=== PATIENT | male | born 1995 | race Caucasian/White ===

== ENCOUNTER 2023-09-17 21:56 | Emergency (ER) | payer SELFPAY ==
[2023-09-17 21:57] VITALS: BP 117/71
[2023-09-17 22:13] LABS: Urine Albumin Negative (Neg - Trace); Urine Bilirubin Negative (Negative); Urine Character Clear (Clear); Urine Color Yellow; Urine Glucose Negative (Negative); Urine Ketone Trace (Negative); Urine Leukocyte Negative (Negative); Urine Nitrite Negative (Negative); Urine Occult Blood Negative (Negative); Urine Specific Gravity 1.025 (<1.030); Urine Urobilinogen Negative (Neg - 1+)
[2023-09-17 22:15] LABS: Hemoglobin 14.3 g/dL (13.0-18.0); Mean Corp Hgb Conc. 35.8 g/dL (33.0-37.0); Mean Corpuscular Volume 83.9 fL (80.0-94.0); Mean Platelet Volume 8.7 fL (7.4-10.4); Platelet Count 238 10^3/uL (130-400); Red Blood Cell Count 4.77 10^6/uL (4.70-6.10); Red Cell Dist. Width 12.1 % (11.5-14.5); White Blood Cell Count 5.6 10^3/uL (4.8-10.8)
[2023-09-17 22:25] LABS: Blood Urea Nitrogen 12 mg/dl (9-20); Calcium 9.8 mg/dl (8.4-10.2); Carbon Dioxide 28 mmol/L (22-30); Chloride 104 mmol/L (98-107); Glucose 81 mg/dl (70-99); Potassium 4.1 mmol/L (3.5-5.1); Sodium 139 mmol/L (135-145); eGFR > 60.00
[2023-09-18 01:06] VITALS: BMI 25.2
[2023-09-18 01:07] VITALS: BP 130/78
--- NOTE | 2023-09-18 01:22 | ED.GENMED ---
History of Present Illness
<CONY Patino - Last Filed: 09/18/23 05:56>
General
Chief Complaint: Flank Pain
Source: patient
Exam Limitations: none
Time Seen by Provider: 09/18/23 01:02
History of Present Illness
History of Present Illness:
27 year old male presenting for evaluation of R flank pain with radiation to his R groin. Pt states that he injured his back at work one week ago, but has been experiencing R flank pain with radiation to his groin since Thursday. He notes that this
pain has worsened today, which prompted his ED visit. He describes the pain as sharp, and rates it as a 7/10. He adds that he has had difficulty sleeping and is unable to get comfortable over the last 24 hours due to the pain. He also admits to
associated loss of appetite. He denies N/V/D, fever, dysuria, urinary hesitancy, frequency, and hematuria. He has tried OTC pain medication with little relief.
Past History
<CONY Patino - Last Filed: 09/18/23 05:56>
Past History
ED Past Medical History: Psychiatric (Anxiety)
ED Past Surgical History: None
Social History
Tobacco: Vaping
Alcohol: None
Personal: Single
Living: with family
Review of Systems
<CONY Patino - Last Filed: 09/18/23 05:56>
Review of Systems
Allergies reviewed?: Yes
Constitutional: Reports no symptoms
EENT: Reports no symptoms
Respiratory: Reports no symptoms
Cardiac: Reports no symptoms
ABD/GI: Reports constipated, anorexia and pain
: Reports flank pain
Skin: Reports no symptoms
Neurological: Reports no symptoms
Endocrine: Reports no symptoms
Hematologic/Lymphatic: Reports no symptoms
Psychiatric: Reports no symptoms
Phy Exam
<CONY Patino - Last Filed: 09/18/23 05:56>
General Physical Exam
General Presentation: well appearing
General age: appears stated age
General Skin: warm
General Habitus: normal
General Mental: alert
General Hydration: appears well hydrated
Cardiovascular Exam
Cardiovascular Exam: regular rate/rhythm and no edema
Pulmonary Exam
Pulmonary Exam: lungs clear and no respiratory distress
Gastrointestinal Exam
Gastrointestinal Exam: normal bowel sounds, cva tenderness, no abdominal hernia and no inguinal hernia
Palpation: right upper quadrant: Mild tenderness and right lower quadrant: Mild tenderness
Musculoskeletal Exam
Musculoskeletal Exam: back pain and back tenderness
Course
<CONY Patino - Last Filed: 09/18/23 05:56>
Orders/Labs/Results
Orders:
Orders
09/17/23 22:08
BMP [Basic Metabolic Panel] Urgent
Complete Blood Count/No Diff Urgent
Urinalysis Reflex To Culture Urgent
Date Specimen was Collected: 09/17/23
Time Specimen was Collected: 22:01
09/18/23 01:21
CT Abd/pel Without Iv Or Oral Urgent
Comment:
Reason For Exam: flank pain (R)
Abnormal Lab Results
09/17/23
22:08
Urine Ketones Trace A
(Negative)
09/17/23 22:08
09/17/23 22:08
Vital Signs
Initial and Last Documented VS:
Initial Vital Signs
Temp Pulse Resp BP Pulse Ox
98.9 F 79 18 117/71 98
09/17/23 21:57 09/17/23 21:57 09/17/23 21:57 09/17/23 21:57 09/17/23 21:57
Last Documented Vital Signs
Temp Pulse Resp BP Pulse Ox
98.9 F 82 18 130/78 100
09/17/23 21:57 09/18/23 01:07 09/18/23 01:07 09/18/23 01:07 09/18/23 01:07
<Ruben Ohara DO - Last Filed: 09/18/23 02:29>
Orders/Labs/Results
Orders:
Orders
09/17/23 22:08
BMP [Basic Metabolic Panel] Urgent
Complete Blood Count/No Diff Urgent
Urinalysis Reflex To Culture Urgent
Date Specimen was Collected: 09/17/23
Time Specimen was Collected: 22:01
09/18/23 01:21
CT Abd/pel Without Iv Or Oral Urgent
Comment:
Reason For Exam: flank pain (R)
Abnormal Lab Results
09/17/23
22:08
Urine Ketones Trace A
(Negative)
09/17/23 22:08
09/17/23 22:08
Vital Signs
Initial and Last Documented VS:
Initial Vital Signs
Temp Pulse Resp BP Pulse Ox
98.9 F 79 18 117/71 98
09/17/23 21:57 09/17/23 21:57 09/17/23 21:57 09/17/23 21:57 09/17/23 21:57
Last Documented Vital Signs
Temp Pulse Resp BP Pulse Ox
98.9 F 82 18 130/78 100
09/17/23 21:57 09/18/23 01:07 09/18/23 01:07 09/18/23 01:07 09/18/23 01:07
<CONY Patino - Last Filed: 09/18/23 05:56>
MDM/Problems Addressed
Differential Diagnosis Includes:
Low back strain, herniated lumbar disc, nephrolithiasis, appendicitis, cystitis, pyelonephritis, pancreatitis.
MDM/Problems Addressed:
BMP
Complete Blood Count
Urinalysis Reflex To Culture
CT Abd/pel Without Iv Or Oral Urgent
<CONY Patino - Last Filed: 09/18/23 05:56>
*Critical Care Note
Total Time (30-74mins, 75-104mins- exclusive of procedures): Not Applicable
ED Attending Note
<CONY Patino - Last Filed: 09/18/23 05:56>
-
Portions of this chart may have been created with voice recognition software.� Occasional wrong word or��sound alike� substitutions may have occurred due to the inherent limitations of voice recognition software.
<Ruben Ohara DO - Last Filed: 09/18/23 02:29>
ED Attending Note
Patient seen and examined by attending physician: Yes
I performed the substantive portion of visit, reviewed & personally made and approve the management plan that is documented in note by myself or JAY.: Yes
ED Attending Note:
This a pleasant 27-year-old male presents with right flank pain. He states that several days ago he was lifting his girlfriend up and he felt sharp pain on his right flank. He reports that it radiates into his right groin. He states that the pain
it has involved that is not similar to the original pain. Denies any difficulty urinating. He states that the pain is reproducible with torso twisting. Reports no chest pain or shortness of breath. Patient came into the emergency department
because he felt he had difficulty sleeping due to the pain. Patient was seen in conjunction with the PA student. I have reviewed and agree with the history and treatment plan presented. On my independent physical exam, patient is awake, alert,
and oriented x3. Heart is regular rate rhythm. Lungs clear to auscultation bilaterally without wheezes rales or rhonchi present. Abdomen is soft without reproducible pain in the right lower quadrant. Good bowel sounds x 4 quadrants. Minimal
right-sided CVA tenderness.
Given urinalysis that does not show any hematuria, minimal CVA tenderness, and reproduction with torso twisting, I feel that this is musculoskeletal in nature.
Discharge Plan
Departure
Patient Disposition: Home (Routine Discharge)
Date of Disposition: 09/18/23
Time of Disposition: 02:28
Patient with high blood pressure during this ER visit?: Yes
Condition: Good
Discharge Problem:
Musculoskeletal pain
Instructions: BLOOD PRESSURE, Musculoskeletal Pain
Prescriptions:
New
cyclobenzaprine 10 mg tablet
10 mg PO TID PRN (Reason: spasm) Qty: 10 0RF
diclofenac sodium 75 mg tablet,delayed release (DR/EC)
75 mg PO BID Qty: 10 0RF
No Action
cyclobenzaprine 10 mg tablet
10 mg PO HS Qty: 5 0RF
prednisone 20 mg tablet
40 mg PO DAILY Qty: 10 0RF
Referrals:
[facility] [Provider Group]
Eddy Ivan MD [Family Provider] -
Stand Alone Forms: Return to Work
Activity Restrictions/Additional Instructions:
It was a pleasure meeting you and taking part in your care. We hope for your continued healing and wellness.
Please read discharge instructions in their entirety. However, they are for general education and may not describe your exact diagnosis at discharge. Information on your ER visit and medical conditions were discussed with you along with appropriate
follow up information...
If indicated, please take your medications as instructed and indicated on discharge paperwork.
Please schedule a follow up appointment as directed. Call to schedule an appointment
Please return to the emergency department with ANY change in, persisting, or worsening of symptoms. If any of your symptoms do not improve, or persist, or become more severe within 6-12 hours, please return to the emergency department for further
care.
Please return to the emergency department if you develop a headache, neck pain/stiffness, fever greater than 100.4F, chest pain, shortness of breath, persistent nausea, vomiting, slurred speech, difficulty walking, numbness/tingling, weakness, signs
of infection or any other symptoms that are worrisome to you.
If you have any questions or concerns please do not hesitate to call the Hospital at or E-mail me directly at [email or web address]
Interventions
Interventions:
*Risk Screen - Suicide Last Done: 09/18/23 01:07
*General Assessment Last Done: 09/18/23 01:06
*Neglect/Abuse Screening Last Done: 09/18/23 01:07
ED- Fall Risk Assessment Last Done: 09/18/23 01:17
*ED COVID-19 Vaccine History Last Done: 09/18/23 02:51
*Nursing Disposition Last Done: 09/18/23 02:51
TO-Tzcxbe-Kxhlwzjahj Assessment Last Done: 09/18/23 01:17
ED-Male Genitourinary Assessment Last Done: 09/18/23 01:17
Discharge Date and Time
Discharge Date/Time: 09/18/23 02:53
Print Language: ZAMBIAN
== END 2023-09-18 02:53 | disposition home or self-care (01) ==
LOC: EMR 21:56
PROVIDERS: Emergency Medicine; EMERGENCY PHYSICIAN Student in an Organized Health Care Education/Training Program; FAMILY PHYSICIAN Family Medicine
DX: M79.18 Myalgia, other site (principal); R63.0 Anorexia; F41.9 Anxiety disorder, unspecified; F17.290 Nicotine dependence, other tobacco product, uncomplicated
CPT/HCPCS: 99284; 74176; 80048; 81003; 85027

== ENCOUNTER 2024-12-26 07:07 | Emergency (ER) | payer SELFPAY ==
[2024-12-26 07:08] VITALS: BP 109/77
[2024-12-26 07:33] VITALS: BP 109/74
[2024-12-26 07:40] VITALS: BMI 23.2
[2024-12-26 07:56] LABS: Hematocrit 39.0 % (39.0-52.0); Hemoglobin 13.8 g/dL (13.0-18.0); Mean Corp Hgb Conc. 35.4 g/dL (33.0-37.0); Mean Corpuscular Volume 84.8 fL (80.0-94.0); Nucleated Red Blood Cells % 0 % (-); Platelet Count 223 10^3/uL (130-400); Red Cell Dist. Width 12.1 % (11.5-14.5)
[2024-12-26 08:15] LABS: ALT (SGPT) 26 U/L (0-50); AST (SGOT) 21 U/L (17-59); Albumin 4.5 g/dl (3.5-5.0); Alkaline Phosphatase 66 U/L (38-126); Blood Urea Nitrogen 13 mg/dl (9-20); Calcium 9.3 mg/dl (8.4-10.2); Carbon Dioxide 26 mmol/L (22-30); Chloride 108 mmol/L (98-107); Estimated Creatinine Clearance > 125 ml/min; Glucose 96 mg/dl (70-99); Potassium 4.1 mmol/L (3.5-5.1); Sodium 141 mmol/L (135-145); Total Protein 7.2 g/dl (6.3-8.2); eGFR > 60.00
--- NOTE | 2024-12-26 08:19 | ED.GENMED ---
History of Present Illness
General
Chief Complaint: Fainting/Passed Out
Source: patient
Exam Limitations: none
Time Seen by Provider: 12/26/24 08:07
Nursing documentation reviewed up to this point in time: agreed with
History of Present Illness
History of Present Illness:
Patient is a healthy 29-year-old male who presents to the emergency department for evaluation after syncopal event this morning. He states that he woke up this morning, was feeling in his normal state of health prior to getting in the shower around
6:30 AM. During his shower he began feeling very lightheaded, nauseous and experiencing tunnel vision. Fortunately�he was able to walk out of the shower and alert his girlfriend that he felt as if he was going to faint. He then slumped against
the toilet and briefly 'blacked out'. He did not hit his head or sustain any injuries.
Patient's girlfriend did witness the brief syncopal event and states he was out for only a few seconds. He denies experiencing any chest pain or shortness of breath preceding his syncope. He denies any headache, neck pain, numbness/tingling, or
unilateral weakness in extremities.
He does not believe that the temperature of the shower was any hotter than his normal. He denies experiencing any similar syncopal events in the past. He was going [place] this weekend and was feeling well however did feel that he was coming down
with a mild upper respiratory cold this past .
Past History
Past History
ED Past Medical History: Psychiatric (Anxiety)
ED Past Surgical History: None
Social History
Tobacco: Vaping
Alcohol: None
Personal: Single
Living: with family
Review of Systems
Review of Systems
Allergies reviewed?: Yes
All Other Systems: ROS reviewed and negative except as documented in HPI and ROS
Phy Exam
Physical Exam
Physical Exam:
Vitals: Patient's vital signs are stable. Afebrile
General: Patient is very well appearing, no acute distress. Nontoxic-appearing
Skin: Warm and dry, no rashes or lesions
Head: Normocephalic, atraumatic
Eyes: Sclera nonicteric. EOMs intact. Pupils equal round and reactive to light bilaterally. No nystagmus.
Throat: Protecting airway
Neck: Normal ROM, no cervical spine tenderness, no meningismus
Cardiac: Regular rate and rhythm, no murmurs.
Pulm: Normal respiratory effort, no wheezes, rales, rhonchi heard on exam
Abdomen: No abdominal tenderness.
Extremities: No evidence of cyanosis or edema. Strength 5/5 in bilateral upper and lower extremities.
Neuro: AAOx3. CN II-XII grossly intact. No focal deficits
Psychiatric: Normal affect.
Course
Orders/Labs/Results
Orders:
Orders
12/26/24 07:11
Electrocardiogram (*1) Urgent
Reason for Study: Syncope
12/26/24 07:12
EKG- Treatment ONCE
12/26/24 07:39
Complete Blood Count/With Diff Urgent
Comprehensive Metabolic Panel Urgent
12/26/24 08:18
Orthostatic VS- Treatment ONCE
0.9% Sodium Chloride 500 ml [Nss] 500 ml IV BOLUS
12/26/24 08:27
COVID-19 Antigen Urgent
Source: Nasal Swab
Influenza A+B Rapid Molecular Urgent
KOBI Source: Nasal Swab
Specimen Description:
12/26/24 09:12
0.9% Sodium Chloride 500 ml [Nss] 500 ml IV BOLUS
Abnormal Lab Results
12/26/24
07:39
RBC 4.60 L 10^6/uL
(4.70-6.10)
Monocytes % 9.5 H %
(1.7-9.3)
Chloride 108 H mmol/L
(98-107)
12/26/24 07:39
12/26/24 07:39
Vital Signs
Initial and Last Documented VS:
Initial Vital Signs
Temp Pulse Resp BP Pulse Ox
98.4 F 64 18 109/77 98
12/26/24 07:08 12/26/24 07:08 12/26/24 07:08 12/26/24 07:08 12/26/24 07:08
Last Documented Vital Signs
Temp Pulse Resp BP Pulse Ox
98.4 F 58 16 109/74 99
12/26/24 07:08 12/26/24 07:45 12/26/24 07:45 12/26/24 07:33 12/26/24 08:20
MDM/Problems Addressed
Differential Diagnosis Includes:
Not limited to: Vasovagal syncope, orthostatic hypotension, acute dehydration, viral illness, less likely cardiac arrhythmia, etc.
MDM/Problems Addressed:
29 year old previously healthy male presents the ED after syncopal event that occurred while taking a shower. He reports feeling lightheaded and nauseous, then lost consciousness very briefly and regained awareness in seconds. No seizure-like
activity, tongue biting, incontinence, chest pain or shortness of breath. He has stable vital signs on arrival and throughout ED stay. Afebrile, normotensive, no orthostatic hypotension. Physical exam as above. Normal neurologic, cardiovascular,
and pulmonary exams. No evidence of head trauma.
EKG reveals sinus bradycardia. No evidence of ischemia, arrhythmia, or QT prolongation. Basic labs within normal limits. No indication for imaging at this time as there is no evidence of trauma or any neurologic deficits.
Overall impression is likely vasovagal syncope triggered by prolonged standing and heat in shower. He has an overall very low risk profile with no history of cardiac disease or any concerning features of syncope including exertional component or
family history of sudden . He has normal ECG, physical exam, and labs. He was given a liter of IV fluids with subjective improvement in symptoms. Patient is ambulating around the room without any lightheadedness or dizziness. He has a
steady gait.
Ultimately�feel stable for discharge home with return precautions and PCP follow-up next week. Patient comfortable with plan.
Chronic conditions affecting care:
N/A
Acute Exacerbation and/or Progression of Chronic Illness:
N/A
*Pulse Oximetry
SaO2: 99
Oxygen Mode of Delivery: Room air
Patient hypoxic: no
*EKG
Interpreted by ED Provider?: Yes
EKG Intrepretation Date: 12/26/24
Interpretation: normal
Comparison EKG: no changes
Heart Rate: 59
Rate: bradycardiac
Rhythm: sinus
[place]: normal axis
Interval: normal QT interval
Ischemia: no ischemia
*Financial Reporting Consultant Interpretation
Rate: bradycardiac
Interpretation: normal
Heart Rate: 58
Rhythm: sinus
*Critical Care Note
Total Time (30-74mins, 75-104mins- exclusive of procedures): Not Applicable
ED Attending Note
-
Portions of this chart may have been created with voice recognition software.� Occasional wrong word or��sound alike� substitutions may have occurred due to the inherent limitations of voice recognition software.
Discharge Plan
Departure
Patient Disposition: Home (Routine Discharge)
Date of Disposition: 12/26/24
Time of Disposition: 09:42
Patient with high blood pressure during this ER visit?: No
Discharge Problem:
Syncope
Instructions: Syncope (Fainting) (DC)
Prescriptions:
No Action
cyclobenzaprine 10 mg tablet
10 mg PO HS Qty: 5 0RF
prednisone 20 mg tablet
40 mg PO DAILY Qty: 10 0RF
cyclobenzaprine 10 mg tablet
10 mg PO TID PRN (Reason: spasm) Qty: 10 0RF
diclofenac sodium 75 mg tablet,delayed release (DR/EC)
75 mg PO BID Qty: 10 0RF
Referrals:
Nayeli Ervin CRNP [Family Provider, Family Practice] - Follow up in 5-7 days
Stand Alone Forms: Return to Work
Activity Restrictions/Additional Instructions:
RETURN TO THE EMERGENCY DEPARTMENT WITH ANY FEVERS, CHEST PAIN OR SHORTNESS OF BREATH, PERSISTENT LIGHTHEADEDNESS/DIZZINESS OR ADDITIONAL EPISODES OF FAINTING, OR ANY OTHER SYMPTOMS CONCERNING TO YOU
- As discussed�your lab work and EKG showed no acute abnormalities today in the emergency department. You were given 1 L of IV fluids
- Please stay well-hydrated and move slowly from sitting to standing.
- Follow-up with your primary care provider next week for further evaluation/management and to ensure that your symptoms are improving
Monitor your symptoms closely and return to the emergency department with any acute worsening/new symptoms or any other concerns
Interventions
Interventions:
*Risk Screen - Suicide Last Done: 12/26/24 07:08
*General Assessment Last Done: 12/26/24 07:08
*Neglect/Abuse Screening Last Done: 12/26/24 07:08
*ED- Fall Risk Assessment Last Done: 12/26/24 07:40
*ED COVID-19 Vaccine History Last Done: 12/26/24 07:54
*ED Influenza Vaccine History Last Done: 12/26/24 07:54
ED- Cardiac Assessment Last Done: 12/26/24 07:54
ED- Neurological Assessment Last Done: 12/26/24 07:54
Discharge Date and Time
Print Language: [email or web address]
[2024-12-26] MEDS: NSS 500 IV ×2 (08:28→09:00)
[2024-12-26 08:29] VITALS: BP 101/66; BP 104/65; BP 108/72; PULSE 58; PULSE 62; PULSE 66
[2024-12-26 09:28] LABS: COVID-19 Antigen Negative (Negative)
== END 2024-12-26 10:34 | disposition home or self-care (01) ==
LOC: EMR 07:07
PROVIDERS: Emergency Medicine; Physician Assistant; EMERGENCY PHYSICIAN Emergency Medicine; FAMILY PHYSICIAN Registered Nurse
DX: R55 Syncope and collapse (principal); R00.1 Bradycardia, unspecified; F41.9 Anxiety disorder, unspecified; F17.290 Nicotine dependence, other tobacco product, uncomplicated
CPT/HCPCS: 99284; 96360; 96361; 80053; 85025; 87502; 87811; 93005